=== PATIENT | male | born 1990 | race Caucasian/White ===

== ENCOUNTER 2018-04-11 16:07 | Emergency (ER) | payer BC, OTHER ==
--- NOTE | 2018-04-11 19:29 | ER Document Report ---
ED Medical Screen (RME) - General Chief Complaint: Productive Cough Stated Complaint: PRODUCTIVE COUGH Time Seen by Provider: 04/11/18 19:04 TRAVEL OUTSIDE OF THE [place] IN LAST 30 DAYS: No - HPI Patient complains to provider of: Cough Onset: Other - 27-year-old man that presents for 3 weeks of intermittent cough for which she is undergone treatment initially with azithromycin followed thereafter by the use of Tessalon Perles which improved his cough with some persistent episodes of cough and there after presented was prescribed a steroid as well as an inhaler which did not improve his symptoms is today felt worse. He denies chest pain at this time, abdominal pain, diarrhea constipation dysuria. Does endorse some shortness of breath. - Related Data Allergies/Adverse Reactions: No Known Allergies Allergy (Verified 04/11/18 16:08) Past Medical History - General Information source: Patient, Relative - Social History Cigarette use (# per day): No Chew tobacco use (# tins/day): No Frequency of alcohol use: None Drug Abuse: None Renal/ Medical History: Denies: Hx Peritoneal Dialysis Psychiatric Medical History: Reports: Hx Attention Deficit Hyperactivity Disorder Past Surgical History: Reports: Hx Oral Surgery - wisdom teeth Review of Systems - Review of Systems -: Yes All other systems reviewed and negative Physical Exam - Vital signs Vitals: Temp Pulse Resp BP Pulse Ox 98.7 F 88 20 126/75 H 99 04/11/18 16:13 04/11/18 16:13 04/11/18 16:13 04/11/18 16:13 04/11/18 16:13 Interpretation: Normal - General General appearance: Appears well, Alert - HEENT Head: Normocephalic, Atraumatic Eyes: Normal Pupils: PERRL - Respiratory Respiratory status: No respiratory distress Chest status: Nontender Breath sounds: Normal Chest palpation: Normal - Cardiovascular Rhythm: Regular Heart sounds: Normal auscultation Murmur: No - Abdominal Inspection: Normal Distension: No distension Bowel sounds: Normal Tenderness: Nontender Organomegaly: No organomegaly - Back Back: Normal, Nontender - Extremities General upper extremity: Normal inspection, Nontender, Normal color, Normal ROM, Normal temperature General lower extremity: Normal inspection, Nontender, Normal color, Normal ROM, Normal temperature, Normal weight bearing. No: Valentine's sign - Neurological Neuro grossly intact: Yes Cognition: Normal Orientation: AAOx4 [place] Coma Scale Eye Opening: Spontaneous [place] Coma Scale Verbal: Oriented [place] Coma Scale Motor: Obeys Commands [place] Coma Scale Total: 15 Speech: Normal Motor strength normal: LUE, RUE, LLE, RLE Sensory: Normal - Psychological Associated symptoms: Normal affect, Normal mood - Skin Skin Temperature: Warm Skin Moisture: Dry Skin Color: Normal Course - Re-evaluation Re-evalutation: 04/11/18 21:01 This 27-year-old with a persistent cough. Sounds like he had a viral syndrome is now had 3 weeks of intermittent cough. Spoke to this patient about options including chest x-ray, blood work, symptom control attempt and discharge with follow-up. We opted for a more conservative approach using a trial of an antitussive at [facility]. He does have Tessalon Perles which have been helping he also has an inhaler. His lungs demonstrate no auditory wheezes or rhonchi. We will plan for this patient to be discharged with return precautions and a brief prescription for a codeine containing antitussive. - Vital Signs Vital signs: Temp Pulse Resp BP Pulse Ox 97.6 F 81 16 139/71 H 99 04/11/18 19:37 04/11/18 19:37 04/11/18 19:37 04/11/18 19:37 04/11/18 19:37 Doctor's Discharge - Discharge Clinical Impression: Cough, Post viral syndrome Condition: Good Disposition: HOME, SELF-CARE Instructions: Cough Suppressant & Expectorant Medications Additional Instructions: You were seen today in the emergency department for your cough. Yo had evaluation including a physical exam. You will be given a prescription for cough medicine to use as needed. You should use this cough medicine only at night as it does have a medicine that is sedating. You should use the Tessalon Perles which you already have through the day as needed. Use the albuterol only as needed. You can return in case you have worsening chest pain, shortness of breath, abdominal pain or feel like you cannot breathe. Prescriptions: Codeine Phosphate/Guaifenesin [Codeine-Guaifen 10-100 mg/5 ml] 240 ml PO TID PRN 5 Days #5 liquid PRN Reason: Forms: Return to Work Referrals: [facility] [Provider Group] - Follow up as needed
[2018-04-11 19:40] VITALS: BP 139/71
== END 2018-04-11 19:39 | disposition home or self-care (01) ==
LOC: ER 16:07
DX: R05 Cough (principal); B34.9 Viral infection, unspecified
CPT/HCPCS: 99283